=== PATIENT | male | born 1950 | race African-American/Black ===

== ENCOUNTER 2019-06-09 03:10 | Inpatient (IN) ==
[2019-06-09] MEDS ORDERED: NICOTINE 21 MG/24 HR PATCH TRANSDERM PRN (05:32)
[2019-06-09] MEDS ORDERED: hydrALAZINE 20 MG/1 ML VIAL IV PRN (05:32)
[2019-06-09] MEDS ORDERED: diphenhydrAMINE CAP 25 MG CAPSULE PO PRN (05:32)
[2019-06-09] MEDS ORDERED: guaiFENesin/DM ER 600-30 MG TABLET PO PRN (05:32)
[2019-06-09 06:02] LABS: Basophils % 0.3 % (0.0-0.8); Eosinophils # 0.2 10*3/uL (0.0-0.87); Eosinophils % 3.3 % (0.00-10.9); Immature Granulocytes % 0.5 %; Immature Granulocytes Absolute 0.03 #; Lymphocytes # 1.6 10*3/uL (1.4-4.0); Lymphocytes % 24.5 % (21.2-54.2); Mean Corpuscular HGB Conc 27.4 GM/DL (32-36); Monocytes % 10.1 % (1.7-12.7); Neutrophils % 61.3 % (38.7-73.9); Platelet Count 232 T/CUMM (130-400); Red Cell Distribution Width 16.7 % (9.3-17.3); White Blood Count 6.4 T/CUMM (4-12)
[2019-06-09 06:26] LABS: Hematocrit 24.7 VOL% (42.0-52.0); Hemoglobin 6.8 GM/DL (14.0-18.0)
[2019-06-09 06:33] LABS: Albumin 2.7 G/DL (3.4-5.0); Bilirubin,Total 0.4 MG/DL (0.2-1.0); Calcium 8.1 MG/DL (8.5-10.1); Risk Ratio 2.07; Thyroid Stimulating Hormone 2.17 uIU/ml (0.358-3.74); Total Protein 7.5 G/DL (6.4-8.3); VLDL CHOLESTEROL 8.8 MG/DL
[2019-06-09] MEDS ORDERED: MORPHINE 4 MG/1 ML VIAL IV ONE (06:33)
[2019-06-09 06:34] LABS: Folate 11.7 NG/ML (5.4-24.0); Vitamin B12 448 PG/ML (211-911)
[2019-06-09 06:43] LABS: Anisocytosis 1+; Hypochromasia 1+; Microcytosis 1+; Ovalocytes Few
[2019-06-09 06:44] LABS: Platelet Estimate Normal; Spherocytes Slight
[2019-06-09 07:07] LABS: Sedimentation Rate-Westergren 84 MM/HR (0-20)
[2019-06-09 08:46] LABS: Hemoglobin A1 (Alkaline) 97.2 % (96.5-98.5); Hemoglobin A2 (Alkaline) 2.8 % (1.5-3.5)
[2019-06-09] MEDS: PANTOPRAZOLE 40 MG VIAL IV SCH ×2 (11:22→20:59)
[2019-06-09] MEDS: DEXTROSE 5% LACTATED RINGERS 1,000 ML IV SCH (11:29)
[2019-06-09] MEDS ORDERED: ceFAZolin 1,000 MG in SYRINGE 1 EACH IV ONE (13:35)
[2019-06-09 14:18] LABS: Apearance,Urine CLEAR (Clear); Bilirubin,Urine Negative (Negative); Blood, Urine Negative (Negative); Glucose,Urine (UA) Negative (Negative); Ketones,Urine Negative (Negative); Mucus,Urine Occasional /LPF (Occasional); Nitrite,Urine Negative (Negative); Protein,Urine Negative; RBC,Urine 1 /HPF (0-4); Squamous Epithelial Cell,Urine Occasional /HPF (0-10); Urine Color Yellow (Yellow); Urine Specific Gravity 1.018 (1.001-1.035); Urine Urobilinogen < 2.0 EU/DL (0.2-1.0); WBC,Urine 1 /HPF (0-6)
[2019-06-09 14:39] LABS: % Iron Saturation 5.3 % (18-50)
[2019-06-09] MEDS ORDERED: SODIUM CHLORIDE 0.9% 1,000 ML IV PRN (15:39)
[2019-06-09] MEDS: MORPHINE 4 MG/1 ML VIAL IV PRN ×2 (16:53→21:02)
[2019-06-09] MEDS: NITROGLYCERIN 2% OINT 1 INCH/GM PACK TOP SCH (17:51)
[2019-06-09] MEDS ORDERED: FUROSEMIDE 40 MG/4 ML VIAL IV ONE (20:00)
[2019-06-10] MEDS: NITROGLYCERIN 2% OINT 1 INCH/GM PACK TOP SCH ×5 (00:24→18:05)
[2019-06-10 02:34] LABS: Basophils % 0.3 % (0.0-0.8); Eosinophils # 0.1 10*3/uL (0.0-0.87); Eosinophils % 1.4 % (0.00-10.9); Hematocrit 29.3 VOL% (42.0-52.0); Hemoglobin 8.7 GM/DL (14.0-18.0); Immature Granulocytes % 0.2 %; Immature Granulocytes Absolute 0.01 #; Lymphocytes # 1.2 10*3/uL (1.4-4.0); Mean Corpuscular HGB Conc 29.7 GM/DL (32-36); Mean Corpuscular Volume 77.7 FL (87-102); Monocytes % 10.5 % (1.7-12.7); Neutrophils % 69.6 % (38.7-73.9); Platelet Count 233 T/CUMM (130-400); Red Blood Count 3.77 MC/CUMM (3.8-5.5); Red Cell Distribution Width 16.7 % (9.3-17.3); White Blood Count 6.5 T/CUMM (4-12)
[2019-06-10 02:40] LABS: Calcium 8.2 MG/DL (8.5-10.1); Osmolality,Calculated 272.8 MOS/KG (273-304)
[2019-06-10 02:53] LABS: PT Patient Result 11.2 SECS (9.6-12.2)
[2019-06-10] MEDS: MORPHINE 4 MG/1 ML VIAL IV PRN ×3 (06:53→21:23)
[2019-06-10] MEDS ORDERED: SODIUM CHLORIDE 0.9% 1,000 ML IV PRN (08:39)
[2019-06-10] MEDS: POTASSIUM CHLORIDE RIDER 10 MEQ in PREMIX 1 EACH IV PRN (09:05)
[2019-06-10] MEDS ORDERED: PROMETHAZINE INJ 25 MG in SODIUM CHLORIDE 0.9% 50 ML IV PRN (09:30)
[2019-06-10] MEDS ORDERED: MEPERIDINE 25 MG/1 ML VIAL IV PRN (09:30)
[2019-06-10] MEDS ORDERED: ONDANSETRON 4 MG/2 ML VIAL IV PRN (09:30)
[2019-06-10] MEDS ORDERED: diphenhydrAMINE 50 MG/1 ML VIAL IV PRN (09:30)
[2019-06-10] MEDS ORDERED: DEXAMETHASONE 4 MG/1 ML VIAL ONE (10:08)
[2019-06-10] MEDS ORDERED: ROPIVACAINE 0.5% 30 ML VIAL ONE (10:08)
[2019-06-10] MEDS ORDERED: SUGAMMADEX 200 MG/2 ML VIAL IV ONE (10:42)
[2019-06-10 11:32] LABS: Apearance,Urine CLEAR (Clear); Bilirubin,Urine Negative (Negative); Blood, Urine Small mg/dL (Negative); Glucose,Urine (UA) Negative (Negative); Hyaline Casts,Urine 5 /LPF (0-3); Ketones,Urine Negative (Negative); Mucus,Urine Occasional /LPF (Occasional); Nitrite,Urine Negative (Negative); Protein,Urine 30 MG/DL; RBC,Urine 1 /HPF (0-4); Squamous Epithelial Cell,Urine Occasional /HPF (0-10); Urine Color Yellow (Yellow); Urine Specific Gravity 1.017 (1.001-1.035); Urine Urobilinogen < 2.0 EU/DL (0.2-1.0); WBC,Urine 1 /HPF (0-6)
[2019-06-10] MEDS: DEXTROSE 5% LACTATED RINGERS 1,000 ML IV SCH ×3 (11:50→23:08)
[2019-06-10] MEDS ORDERED: propofoL 200 MG/20 ML VIAL IV ONE (11:59)
[2019-06-10] MEDS ORDERED: LIDOCAINE 2% 5 ML VIAL ONE (11:59)
[2019-06-10] MEDS ORDERED: SEVOFLURANE 1 UNIT/15 MINUTE INH ONE (11:59)
[2019-06-10] MEDS ORDERED: FUROSEMIDE 20 MG/2 ML VIAL ONE (12:00)
[2019-06-10] MEDS ORDERED: fentaNYL 250 MCG/5 ML VIAL ONE (12:00)
[2019-06-10] MEDS ORDERED: ePHEDrine 50 MG/ML AMP ONE (12:00)
[2019-06-10] MEDS ORDERED: MIDAZOLAM 2 MG/2 ML VIAL ONE (12:00)
[2019-06-10] MEDS ORDERED: fentaNYL 100 MCG/2 ML VIAL ONE (12:00)
[2019-06-10] MEDS ORDERED: PHENYLEPHRINE 1 MG/10 ML SYRINGE IV ONE (12:01)
[2019-06-10] MEDS ORDERED: SUCCINYLCHOLINE 200 MG/10 ML VIAL ONE (12:01)
[2019-06-10] MEDS ORDERED: ONDANSETRON 4 MG/2 ML VIAL ONE (12:01)
[2019-06-10] MEDS ORDERED: ETOMIDATE 40 MG/20 ML VIAL IV ONE (12:01)
[2019-06-10] MEDS ORDERED: SODIUM CHLORIDE 0.9% 1,000 ML IV ONE (12:11)
[2019-06-10] MEDS ORDERED: ROCURONIUM 100 MG/10 ML VIAL IV ONE (12:11)
[2019-06-10] MEDS: ONDANSETRON 4 MG/2 ML VIAL IV PRN (13:46)
[2019-06-10] MEDS: PANTOPRAZOLE 40 MG VIAL IV SCH ×2 (14:58→21:18)
[2019-06-10] MEDS: cefOXitin 2,000 MG in SYRINGE 1 EACH IV SCH (18:05)
[2019-06-11] MEDS: NITROGLYCERIN 2% OINT 1 INCH/GM PACK TOP SCH ×4 (00:36→19:17)
[2019-06-11] MEDS: cefOXitin 2,000 MG in SYRINGE 1 EACH IV SCH ×2 (06:08→16:34)
[2019-06-11] MEDS: MORPHINE 4 MG/1 ML VIAL IV PRN ×3 (06:17→14:49)
[2019-06-11 07:31] LABS: Calcium 8.2 MG/DL (8.5-10.1)
[2019-06-11 07:40] LABS: Basophils % 0.1 % (0.0-0.8); Hemoglobin 10.1 GM/DL (14.0-18.0); Immature Granulocytes % 0.5 %; Immature Granulocytes Absolute 0.06 #; Lymphocytes # 0.8 10*3/uL (1.4-4.0); Lymphocytes % 6.5 % (21.2-54.2); Mean Corpuscular HGB Conc 30.6 GM/DL (32-36); Mean Corpuscular Volume 78.8 FL (87-102); Mean Platelet Volume 10.2 FL (9.6-12.0); Monocytes % 8.7 % (1.7-12.7); Neutrophils % 84.2 % (38.7-73.9); Platelet Count 212 T/CUMM (130-400); Red Blood Count 4.19 MC/CUMM (3.8-5.5); Red Cell Distribution Width 16.8 % (9.3-17.3); White Blood Count 12.7 T/CUMM (4-12)
[2019-06-11] MEDS: ONDANSETRON 4 MG/2 ML VIAL IV PRN ×2 (09:22→14:50)
[2019-06-11] MEDS: PANTOPRAZOLE 40 MG VIAL IV SCH ×2 (09:24→20:30)
[2019-06-11] MEDS: POTASSIUM CHLORIDE RIDER 10 MEQ in PREMIX 1 EACH IV PRN ×2 (13:32→14:50)
[2019-06-12] MEDS: NITROGLYCERIN 2% OINT 1 INCH/GM PACK TOP SCH ×4 (00:15→18:09)
[2019-06-12] MEDS: cefOXitin 2,000 MG in SYRINGE 1 EACH IV SCH (04:45)
[2019-06-12] MEDS: DEXTROSE 5% LACTATED RINGERS 1,000 ML IV SCH (04:45)
[2019-06-12 06:18] LABS: Basophils % 0.2 % (0.0-0.8); Eosinophils # 0.1 10*3/uL (0.0-0.87); Eosinophils % 1.3 % (0.00-10.9); Hematocrit 33.8 VOL% (42.0-52.0); Immature Granulocytes % 0.6 %; Immature Granulocytes Absolute 0.06 #; Lymphocytes # 1.4 10*3/uL (1.4-4.0); Lymphocytes % 13.6 % (21.2-54.2); Mean Corpuscular HGB Conc 29.6 GM/DL (32-36); Mean Corpuscular Volume 79.5 FL (87-102); Mean Platelet Volume 10.1 FL (9.6-12.0); Monocytes % 9.3 % (1.7-12.7); Platelet Count 216 T/CUMM (130-400); Red Blood Count 4.25 MC/CUMM (3.8-5.5); Red Cell Distribution Width 17.1 % (9.3-17.3); White Blood Count 10.3 T/CUMM (4-12)
[2019-06-12] MEDS ORDERED: ceFAZolin 1,000 MG in SYRINGE 1 EACH IV ONE (06:30)
[2019-06-12 06:31] LABS: Calcium 8.6 MG/DL (8.5-10.1); Osmolality,Calculated 272.8 MOS/KG (273-304)
[2019-06-12] MEDS: PANTOPRAZOLE 40 MG VIAL IV SCH ×2 (09:59→22:02)
[2019-06-12] MEDS: POTASSIUM CHLORIDE RIDER 10 MEQ in PREMIX 1 EACH IV PRN ×3 (10:09→14:09)
[2019-06-12] MEDS ORDERED: MORPHINE 4 MG/1 ML VIAL IV PRN ×2 (12:10)
[2019-06-13] MEDS: DEXTROSE 5% LACTATED RINGERS 1,000 ML IV SCH ×2 (00:45→05:42)
[2019-06-13] MEDS: NITROGLYCERIN 2% OINT 1 INCH/GM PACK TOP SCH ×3 (01:01→12:10)
[2019-06-13 06:46] LABS: Calcium 8.7 MG/DL (8.5-10.1); Osmolality,Calculated 265.2 MOS/KG (273-304)
[2019-06-13 07:00] LABS: Basophils % 0.2 % (0.0-0.8); Eosinophils # 0.3 10*3/uL (0.0-0.87); Eosinophils % 3.8 % (0.00-10.9); Hematocrit 31.7 VOL% (42.0-52.0); Immature Granulocytes % 0.5 %; Immature Granulocytes Absolute 0.04 #; Lymphocytes # 1.5 10*3/uL (1.4-4.0); Lymphocytes % 17.2 % (21.2-54.2); Mean Corpuscular HGB Conc 30.3 GM/DL (32-36); Mean Corpuscular Volume 78.9 FL (87-102); Mean Platelet Volume 10.5 FL (9.6-12.0); Monocytes % 12.1 % (1.7-12.7); Neutrophils % 66.2 % (38.7-73.9); Platelet Count 204 T/CUMM (130-400); Red Blood Count 4.02 MC/CUMM (3.8-5.5); Red Cell Distribution Width 17.2 % (9.3-17.3); White Blood Count 8.5 T/CUMM (4-12)
[2019-06-13 07:02] LABS: Hemoglobin 9.6 GM/DL (14.0-18.0)
[2019-06-13] MEDS: POTASSIUM CHLORIDE RIDER 10 MEQ in PREMIX 1 EACH IV PRN ×3 (10:04→12:18)
[2019-06-13] MEDS: PANTOPRAZOLE 40 MG VIAL IV SCH ×2 (12:10→22:16)
[2019-06-13] MEDS: LOSARTAN 25 MG TABLET PO SCH (16:57)
[2019-06-13] MEDS: AMIODARONE 200 MG TABLET PO SCH (22:16)
[2019-06-13] MEDS: POTASSIUM CHLORIDE 20 MEQ TABLET PO SCH (22:17)
[2019-06-13] MEDS: ENOXAPARIN 40 MG/0.4 ML SYRINGE SUBCUT SCH (22:17)
[2019-06-14 06:09] LABS: Basophils % 0.5 % (0.0-0.8); Eosinophils # 0.4 10*3/uL (0.0-0.87); Eosinophils % 5.1 % (0.00-10.9); Hematocrit 34.7 VOL% (42.0-52.0); Immature Granulocytes % 0.4 %; Immature Granulocytes Absolute 0.03 #; Lymphocytes # 1.3 10*3/uL (1.4-4.0); Lymphocytes % 18.1 % (21.2-54.2); Mean Corpuscular HGB Conc 29.1 GM/DL (32-36); Mean Corpuscular Volume 82.6 FL (87-102); Mean Platelet Volume 10.3 FL (9.6-12.0); Neutrophils % 63.9 % (38.7-73.9); Platelet Count 223 T/CUMM (130-400); Red Cell Distribution Width 17.2 % (9.3-17.3); White Blood Count 7.3 T/CUMM (4-12)
[2019-06-14 06:24] LABS: Calcium 8.7 MG/DL (8.5-10.1); Osmolality,Calculated 273.7 MOS/KG (273-304)
[2019-06-14 06:32] LABS: Hemoglobin 10.1 GM/DL (14.0-18.0)
[2019-06-14 06:54] LABS: Hypochromasia 1+; Ovalocytes Slight; Platelet Estimate Adequate
[2019-06-14] MEDS: LOSARTAN 25 MG TABLET PO SCH (10:13)
[2019-06-14] MEDS: AMIODARONE 200 MG TABLET PO SCH ×2 (10:13→22:05)
[2019-06-14] MEDS: POTASSIUM CHLORIDE 20 MEQ TABLET PO SCH ×2 (10:13→22:04)
[2019-06-14] MEDS: PANTOPRAZOLE 40 MG VIAL IV SCH ×2 (10:14→22:04)
[2019-06-14] MEDS: DEXTROSE 5% LACTATED RINGERS 1,000 ML IV SCH (12:18)
[2019-06-14] MEDS: ENOXAPARIN 40 MG/0.4 ML SYRINGE SUBCUT SCH (22:04)
[2019-06-14] MEDS: carvediloL 12.5 MG TABLET PO SCH (22:05)
[2019-06-15] MEDS ORDERED: FUROSEMIDE 40 MG TABLET PO SCH (09:00)
[2019-06-15] MEDS: LOSARTAN 25 MG TABLET PO SCH (10:47)
[2019-06-15] MEDS: carvediloL 12.5 MG TABLET PO SCH (10:47)
[2019-06-15] MEDS: POTASSIUM CHLORIDE 20 MEQ TABLET PO SCH (10:47)
[2019-06-15] MEDS: PANTOPRAZOLE 40 MG VIAL IV SCH (10:48)
[2019-06-15] MEDS: AMIODARONE 200 MG TABLET PO SCH (10:48)
[2019-06-15 11:17] VITALS: BP 139/57
== END 2019-06-15 16:05 | disposition home or self-care (01) | DRG 330 ==
LOC: N.TELEN 04:47 → SUATTDRO 04:47 → N.3E 06-10 13:47
PROVIDERS: ADMIT Internal Medicine; ATTEND Internal Medicine

== ENCOUNTER 2020-08-01 05:46 | Inpatient (IN) ==
[2020-07-26 12:04] LABS: Basophils % 0.2 % (0.0-0.8); Eosinophils # 0.1 10*3/uL (0.0-0.87); Eosinophils % 1.4 % (0.00-10.9); Hemoglobin 11.7 GM/DL (14.0-18.0); Immature Granulocytes % 0.3 %; Immature Granulocytes Absolute 0.02 #; Lymphocytes # 1.8 10*3/uL (1.4-4.0); Lymphocytes % 28.6 % (21.2-54.2); Mean Corpuscular HGB Conc 31.6 GM/DL (32-36); Mean Corpuscular Volume 90.9 FL (87-102); Mean Platelet Volume 11.3 FL (9.6-12.0); Monocytes % 14.7 % (1.7-12.7); Neutrophils % 54.8 % (38.7-73.9); Platelet Count 159 T/CUMM (130-400); Red Blood Count 4.07 MC/CUMM (3.8-5.5); Red Cell Distribution Width 16.8 % (9.3-17.3); White Blood Count 6.4 T/CUMM (4-12)
[2020-07-26 12:21] LABS: Calcium 8.7 MG/DL (8.5-10.1); Osmolality,Calculated 275.8 MOS/KG (273-304); Potassium 3.8 MMOL/L (3.5-5.1)
[~2020-08-01 05:46] MED LIST: ACETAMINOPHEN 500 MG TABLET PO ONE; FAMOTIDINE 20 MG TABLET PO ONE
[2020-08-01] MEDS ORDERED: LACTATED RINGERS 1,000 ML IV SCH (06:30)
[2020-08-01] MEDS ORDERED: cefOXitin 1,000 MG in SODIUM CHLORIDE 0.9% 100 ML IV ONE (06:30)
[2020-08-01] MEDS ORDERED: FAMOTIDINE 20 MG TABLET ONE (06:42)
[2020-08-01] MEDS ORDERED: ACETAMINOPHEN 500 MG TABLET ONE (06:42)
[2020-08-01] MEDS ORDERED: MIDAZOLAM 2 MG/2 ML VIAL ONE (11:18)
[2020-08-01] MEDS ORDERED: fentaNYL 100 MCG/2 ML VIAL ONE ×2 (11:18→13:47)
[2020-08-01] MEDS ORDERED: ROPIVACAINE 0.5% 30 ML VIAL ONE (11:21)
[2020-08-01] MEDS ORDERED: ROCURONIUM 50 MG/5 ML VIAL IV ONE (12:30)
[2020-08-01] MEDS ORDERED: propofoL 200 MG/20 ML VIAL IV ONE ×2 (12:30→13:46)
[2020-08-01] MEDS ORDERED: LIDOCAINE 2% 5 ML VIAL ONE (12:30)
[2020-08-01] MEDS ORDERED: DEXAMETHASONE 4 MG/1 ML VIAL ONE (12:33)
[2020-08-01] MEDS ORDERED: ONDANSETRON 4 MG/2 ML VIAL ONE ×2 (12:33→14:36)
[2020-08-01] MEDS ORDERED: LACTATED RINGERS 1,000 ML IV ONE (13:50)
[2020-08-01 13:52] LABS: Bacteria,Urine Occasional /HPF (Few); Bilirubin,Urine Negative (Negative); Blood, Urine Moderate mg/dL (Negative); Glucose,Urine (UA) Negative (Negative); Ketones,Urine Negative (Negative); Nitrite,Urine Negative (Negative); Protein,Urine Negative; RBC,Urine <1 /HPF (0-4); Squamous Epithelial Cell,Urine Occasional /HPF (0-10); Urine Appearance CLEAR (Clear); Urine Color Straw (Yellow); Urine Specific Gravity 1.006 (1.001-1.035); Urine Urobilinogen < 2.0 EU/DL (0.2-1.0)
[2020-08-01] MEDS ORDERED: GLYCOPYRROLATE 0.4 MG/2 ML VIAL ONE (13:54)
[2020-08-01] MEDS ORDERED: NEOSTIGMINE 10 MG/10 ML VIAL ONE (13:54)
[2020-08-01] MEDS ORDERED: SEVOFLURANE 1 UNIT/15 MINUTE INH ONE (14:04)
[2020-08-01] MEDS: HYDROmorphone 2 MG/1 ML VIAL IV PRN ×4 (14:34→17:44)
[2020-08-01] MEDS ORDERED: HYDROmorphone 2 MG/1 ML VIAL ONE (14:36)
[2020-08-01] MEDS ORDERED: ONDANSETRON 4 MG/2 ML VIAL IV PRN (14:36)
[2020-08-01] MEDS ORDERED: ACETAMINOPHEN 325 MG TABLET PO PRN (14:54)
[2020-08-01] MEDS ORDERED: ALBUTEROL/IPRATROPIUM 3 ML NEB RESP TX PRN (14:54)
[2020-08-01] MEDS ORDERED: KETOROLAC 15 MG/1 ML VIAL IV PRN (14:54)
[2020-08-01] MEDS ORDERED: MEPERIDINE 25 MG/1 ML VIAL ONE (14:58)
[2020-08-01] MEDS ORDERED: MEPERIDINE 25 MG/1 ML VIAL IV PRN (15:01)
[2020-08-01] MEDS: LACTATED RINGERS 1,000 ML IV SCH ×2 (17:00→21:37)
[2020-08-02] MEDS: HYDROmorphone 2 MG/1 ML VIAL IV PRN (03:49)
[2020-08-02 05:22] LABS: Basophils % 0.1 % (0.0-0.8); Hematocrit 32.5 VOL% (42.0-52.0); Immature Granulocytes % 0.6 %; Immature Granulocytes Absolute 0.07 #; Lymphocytes # 1.1 10*3/uL (1.4-4.0); Lymphocytes % 8.6 % (21.2-54.2); Mean Corpuscular HGB Conc 30.8 GM/DL (32-36); Mean Corpuscular Volume 93.4 FL (87-102); Mean Platelet Volume 10.5 FL (9.6-12.0); Monocytes % 8.7 % (1.7-12.7); Platelet Count 145 T/CUMM (130-400); Red Blood Count 3.48 MC/CUMM (3.8-5.5); Red Cell Distribution Width 16.7 % (9.3-17.3); White Blood Count 12.4 T/CUMM (4-12)
[2020-08-02 05:59] LABS: Calcium 8.3 MG/DL (8.5-10.1); Osmolality,Calculated 276.7 MOS/KG (273-304); Potassium 4.1 MMOL/L (3.5-5.1)
[2020-08-02] MEDS: LACTATED RINGERS 1,000 ML IV SCH ×2 (06:08→10:31)
[2020-08-02] MEDS: ENOXAPARIN 40 MG/0.4 ML SYRINGE SUBCUT SCH (09:10)
[2020-08-02] MEDS: PANTOPRAZOLE 40 MG VIAL IV SCH (09:34)
[2020-08-02] MEDS: KETOROLAC 15 MG/1 ML VIAL IV SCH ×3 (10:38→22:04)
[2020-08-02] MEDS: LOSARTAN 25 MG TABLET PO SCH (20:20)
[2020-08-02] MEDS: POTASSIUM CHLORIDE 20 MEQ TABLET PO SCH (20:20)
[2020-08-02] MEDS: carvediloL 12.5 MG TABLET PO SCH (20:22)
[2020-08-03] MEDS: KETOROLAC 15 MG/1 ML VIAL IV SCH ×4 (04:05→21:02)
[2020-08-03 05:29] LABS: Basophils % 0.3 % (0.0-0.8); Eosinophils # 0.1 10*3/uL (0.0-0.87); Eosinophils % 1.1 % (0.00-10.9); Hematocrit 27.2 VOL% (42.0-52.0); Immature Granulocytes % 0.6 %; Immature Granulocytes Absolute 0.04 #; Lymphocytes # 1.7 10*3/uL (1.4-4.0); Lymphocytes % 24.4 % (21.2-54.2); Mean Corpuscular HGB Conc 31.6 GM/DL (32-36); Mean Corpuscular Volume 91.3 FL (87-102); Mean Platelet Volume 10.2 FL (9.6-12.0); Monocytes % 11.5 % (1.7-12.7); Neutrophils % 62.1 % (38.7-73.9); Red Blood Count 2.98 MC/CUMM (3.8-5.5); Red Cell Distribution Width 16.7 % (9.3-17.3); White Blood Count 7.1 T/CUMM (4-12)
[2020-08-03 05:30] LABS: Platelet Count 115 T/CUMM (130-400)
[2020-08-03 05:31] LABS: Hemoglobin 8.6 GM/DL (14.0-18.0)
[2020-08-03 05:36] LABS: Calcium 8.3 MG/DL (8.5-10.1); Osmolality,Calculated 275.7 MOS/KG (273-304); Potassium 3.9 MMOL/L (3.5-5.1)
[2020-08-03 05:41] LABS: Hypochromasia 1+; Lymphocytes 25 % (20-55); Microcytosis 1+; Platelet Estimate Decreased; Segmented Neutrophils 68 % (50-85); Total Cells Counted 100
[2020-08-03] MEDS: ENOXAPARIN 40 MG/0.4 ML SYRINGE SUBCUT SCH (08:29)
[2020-08-03] MEDS: TAMSULOSIN 0.4 MG CAPSULE PO SCH (08:53)
[2020-08-03] MEDS: FUROSEMIDE 40 MG TABLET PO SCH (08:53)
[2020-08-03] MEDS: PANTOPRAZOLE 40 MG VIAL IV SCH (08:53)
[2020-08-03] MEDS: POTASSIUM CHLORIDE 20 MEQ TABLET PO SCH ×2 (08:53→20:58)
[2020-08-03] MEDS: carvediloL 12.5 MG TABLET PO SCH ×2 (08:53→20:58)
[2020-08-03] MEDS ORDERED: ASPIRIN 325 MG TABLET PO SCH (09:00)
[2020-08-03] MEDS: LOSARTAN 25 MG TABLET PO SCH (20:59)
[2020-08-04] MEDS: KETOROLAC 15 MG/1 ML VIAL IV SCH ×4 (04:12→21:01)
[2020-08-04 05:13] LABS: Basophils % 0.1 % (0.0-0.8); Eosinophils # 0.3 10*3/uL (0.0-0.87); Eosinophils % 3.3 % (0.00-10.9); Hematocrit 29.7 VOL% (42.0-52.0); Immature Granulocytes % 0.3 %; Immature Granulocytes Absolute 0.02 #; Lymphocytes # 1.5 10*3/uL (1.4-4.0); Lymphocytes % 19.7 % (21.2-54.2); Mean Corpuscular HGB Conc 30.3 GM/DL (32-36); Mean Corpuscular Volume 93.4 FL (87-102); Mean Platelet Volume 10.7 FL (9.6-12.0); Monocytes % 10.2 % (1.7-12.7); Neutrophils % 66.4 % (38.7-73.9); Platelet Count 135 T/CUMM (130-400); Red Blood Count 3.18 MC/CUMM (3.8-5.5); Red Cell Distribution Width 16.4 % (9.3-17.3); White Blood Count 7.6 T/CUMM (4-12)
[2020-08-04] MEDS: carvediloL 12.5 MG TABLET PO SCH ×2 (08:46→20:56)
[2020-08-04] MEDS: ENOXAPARIN 40 MG/0.4 ML SYRINGE SUBCUT SCH (08:46)
[2020-08-04] MEDS: POTASSIUM CHLORIDE 20 MEQ TABLET PO SCH ×2 (08:46→20:56)
[2020-08-04] MEDS: TAMSULOSIN 0.4 MG CAPSULE PO SCH (08:46)
[2020-08-04] MEDS: PANTOPRAZOLE 40 MG VIAL IV SCH (08:48)
[2020-08-04] MEDS: GABAPENTIN 300 MG CAPSULE PO SCH ×3 (10:29→20:56)
[2020-08-04] MEDS: FUROSEMIDE 40 MG TABLET PO SCH (10:29)
[2020-08-04] MEDS: HYDROmorphone 2 MG/1 ML VIAL IV PRN (12:51)
[2020-08-04] MEDS: ONDANSETRON 4 MG/2 ML VIAL IV PRN (19:16)
[2020-08-04] MEDS: LOSARTAN 25 MG TABLET PO SCH (20:56)
[2020-08-04 22:10] LABS: Basophils % 0.1 % (0.0-0.8); Eosinophils # 0.1 10*3/uL (0.0-0.87); Eosinophils % 1.5 % (0.00-10.9); Hematocrit 32.4 VOL% (42.0-52.0); Hemoglobin 9.9 GM/DL (14.0-18.0); Immature Granulocytes % 0.4 %; Immature Granulocytes Absolute 0.03 #; Lymphocytes # 0.7 10*3/uL (1.4-4.0); Lymphocytes % 9.4 % (21.2-54.2); Mean Corpuscular HGB Conc 30.6 GM/DL (32-36); Mean Corpuscular Volume 91.8 FL (87-102); Mean Platelet Volume 9.8 FL (9.6-12.0); Monocytes % 8.9 % (1.7-12.7); Neutrophils % 79.7 % (38.7-73.9); Platelet Count 144 T/CUMM (130-400); Red Blood Count 3.53 MC/CUMM (3.8-5.5); Red Cell Distribution Width 16.5 % (9.3-17.3); White Blood Count 7.2 T/CUMM (4-12)
[2020-08-04 22:33] LABS: Anisocytosis 1+; Band Neutrophils 5 % (0-10); Eosinophils 1 % (0-10); Lymphocytes 13 % (20-55); Segmented Neutrophils 76 % (50-85); Total Cells Counted 100
[2020-08-04 22:34] LABS: Elliptocytes Few; Hypochromasia Slight; Platelet Estimate Adequate; Polychromasia Slight
[2020-08-04 22:38] LABS: Bilirubin,Total 0.8 MG/DL (0.2-1.0); Calcium 8.8 MG/DL (8.5-10.1); Osmolality,Calculated 276.8 MOS/KG (273-304); Potassium 3.7 MMOL/L (3.5-5.1); Total Protein 7.8 G/DL (6.4-8.2)
[2020-08-04] MEDS: DEXTROSE 5% LACTATED RINGERS 1,000 ML IV SCH (23:00)
[2020-08-05] MEDS: KETOROLAC 15 MG/1 ML VIAL IV SCH ×4 (03:38→22:48)
[2020-08-05] MEDS: DEXTROSE 5% LACTATED RINGERS 1,000 ML IV SCH ×3 (05:44→22:47)
[2020-08-05] MEDS: HYDROmorphone 2 MG/1 ML VIAL IV PRN ×3 (06:46→20:24)
[2020-08-05] MEDS: carvediloL 12.5 MG TABLET PO SCH ×2 (08:58→21:38)
[2020-08-05] MEDS: GABAPENTIN 300 MG CAPSULE PO SCH ×3 (08:58→21:38)
[2020-08-05] MEDS: POTASSIUM CHLORIDE 20 MEQ TABLET PO SCH ×2 (08:58→21:38)
[2020-08-05] MEDS: TAMSULOSIN 0.4 MG CAPSULE PO SCH (08:58)
[2020-08-05] MEDS: ENOXAPARIN 40 MG/0.4 ML SYRINGE SUBCUT SCH (08:59)
[2020-08-05] MEDS: FUROSEMIDE 40 MG TABLET PO SCH (08:59)
[2020-08-05] MEDS: PANTOPRAZOLE 40 MG VIAL IV SCH (09:02)
[2020-08-05] MEDS: ONDANSETRON 4 MG/2 ML VIAL IV PRN (20:22)
[2020-08-05] MEDS: LOSARTAN 25 MG TABLET PO SCH (21:38)
[2020-08-06] MEDS: KETOROLAC 15 MG/1 ML VIAL IV SCH ×4 (03:05→21:00)
[2020-08-06] MEDS: DEXTROSE 5% LACTATED RINGERS 1,000 ML IV SCH ×3 (04:48→16:00)
[2020-08-06 05:30] LABS: Eosinophils # 0.2 10*3/uL (0.0-0.87); Eosinophils % 4.1 % (0.00-10.9); Hematocrit 29.5 VOL% (42.0-52.0); Hemoglobin 9.2 GM/DL (14.0-18.0); Immature Granulocytes % 0.2 %; Immature Granulocytes Absolute 0.01 #; Lymphocytes # 1.3 10*3/uL (1.4-4.0); Mean Corpuscular HGB Conc 31.2 GM/DL (32-36); Mean Platelet Volume 10.1 FL (9.6-12.0); Monocytes % 18.9 % (1.7-12.7); Neutrophils % 50.8 % (38.7-73.9); Platelet Count 141 T/CUMM (130-400); Red Blood Count 3.24 MC/CUMM (3.8-5.5); Red Cell Distribution Width 16.7 % (9.3-17.3); White Blood Count 4.9 T/CUMM (4-12)
[2020-08-06 05:53] LABS: Osmolality,Calculated 282.3 MOS/KG (273-304); Potassium 3.8 MMOL/L (3.5-5.1)
[2020-08-06 05:54] LABS: Band Neutrophils 2 % (0-10); Eosinophils 3 % (0-10); Hypochromasia 1+; Lymphocytes 32 % (20-55); Microcytosis 1+; Ovalocytes Slight; Platelet Estimate Adequate; Segmented Neutrophils 51 % (50-85); Total Cells Counted 100
[2020-08-06] MEDS: HYDROmorphone 2 MG/1 ML VIAL IV PRN (06:18)
[2020-08-06] MEDS: FUROSEMIDE 40 MG TABLET PO SCH (09:48)
[2020-08-06] MEDS: carvediloL 12.5 MG TABLET PO SCH ×2 (09:49→20:53)
[2020-08-06] MEDS: POTASSIUM CHLORIDE 20 MEQ TABLET PO SCH ×2 (09:49→20:53)
[2020-08-06] MEDS: TAMSULOSIN 0.4 MG CAPSULE PO SCH (09:49)
[2020-08-06] MEDS: GABAPENTIN 300 MG CAPSULE PO SCH ×3 (09:49→20:53)
[2020-08-06] MEDS: PANTOPRAZOLE 40 MG VIAL IV SCH (09:52)
[2020-08-06] MEDS: ENOXAPARIN 40 MG/0.4 ML SYRINGE SUBCUT SCH (09:55)
[2020-08-06] MEDS: LOSARTAN 25 MG TABLET PO SCH (20:53)
[2020-08-07] MEDS: DEXTROSE 5% LACTATED RINGERS 1,000 ML IV SCH ×4 (01:06→22:20)
[2020-08-07] MEDS: KETOROLAC 15 MG/1 ML VIAL IV SCH (04:27)
[2020-08-07] MEDS: FUROSEMIDE 40 MG TABLET PO SCH (09:42)
[2020-08-07] MEDS: carvediloL 12.5 MG TABLET PO SCH ×2 (09:42→21:04)
[2020-08-07] MEDS: TAMSULOSIN 0.4 MG CAPSULE PO SCH (09:42)
[2020-08-07] MEDS: GABAPENTIN 300 MG CAPSULE PO SCH ×3 (09:42→21:04)
[2020-08-07] MEDS: POTASSIUM CHLORIDE 20 MEQ TABLET PO SCH ×2 (09:42→21:04)
[2020-08-07] MEDS: ENOXAPARIN 40 MG/0.4 ML SYRINGE SUBCUT SCH (09:43)
[2020-08-07] MEDS: PANTOPRAZOLE 40 MG VIAL IV SCH (09:43)
[2020-08-07] MEDS: HYDROmorphone 2 MG/1 ML VIAL IV PRN ×2 (13:45→21:05)
[2020-08-07] MEDS ORDERED: PHENOL 1.4% THROAT SPRAY 177 ML BOTTLE PO PRN (15:35)
[2020-08-07] MEDS: LOSARTAN 25 MG TABLET PO SCH (21:04)
[2020-08-08] MEDS: DEXTROSE 5% LACTATED RINGERS 1,000 ML IV SCH ×3 (03:44→14:17)
[2020-08-08] MEDS: HYDROmorphone 2 MG/1 ML VIAL IV PRN ×2 (05:15→13:34)
[2020-08-08 05:22] LABS: Basophils % 0.3 % (0.0-0.8); Eosinophils # 0.3 10*3/uL (0.0-0.87); Eosinophils % 3.8 % (0.00-10.9); Hematocrit 27.3 VOL% (42.0-52.0); Hemoglobin 8.6 GM/DL (14.0-18.0); Immature Granulocytes % 0.3 %; Immature Granulocytes Absolute 0.02 #; Lymphocytes # 1.6 10*3/uL (1.4-4.0); Lymphocytes % 23.8 % (21.2-54.2); Mean Corpuscular HGB Conc 31.5 GM/DL (32-36); Mean Platelet Volume 10.3 FL (9.6-12.0); Monocytes % 15.2 % (1.7-12.7); Neutrophils % 56.6 % (38.7-73.9); Platelet Count 153 T/CUMM (130-400); Red Cell Distribution Width 16.1 % (9.3-17.3); White Blood Count 6.9 T/CUMM (4-12)
[2020-08-08 05:38] LABS: Calcium 8.5 MG/DL (8.5-10.1); Osmolality,Calculated 277.4 MOS/KG (273-304); Potassium 3.8 MMOL/L (3.5-5.1)
[2020-08-08] MEDS: carvediloL 12.5 MG TABLET PO SCH ×2 (09:20→20:52)
[2020-08-08] MEDS: POTASSIUM CHLORIDE 20 MEQ TABLET PO SCH ×2 (09:20→20:50)
[2020-08-08] MEDS: TAMSULOSIN 0.4 MG CAPSULE PO SCH (09:20)
[2020-08-08] MEDS: FUROSEMIDE 40 MG TABLET PO SCH (09:21)
[2020-08-08] MEDS: ENOXAPARIN 40 MG/0.4 ML SYRINGE SUBCUT SCH (09:21)
[2020-08-08] MEDS: GABAPENTIN 300 MG CAPSULE PO SCH ×3 (09:21→20:52)
[2020-08-08] MEDS: PANTOPRAZOLE 40 MG VIAL IV SCH (09:22)
[2020-08-08] MEDS: LOSARTAN 25 MG TABLET PO SCH (20:52)
[2020-08-09] MEDS: DEXTROSE 5% LACTATED RINGERS 1,000 ML IV SCH ×4 (05:24→22:20)
[2020-08-09 06:23] LABS: Basophils % 0.1 % (0.0-0.8); Eosinophils # 0.2 10*3/uL (0.0-0.87); Eosinophils % 1.9 % (0.00-10.9); Hemoglobin 8.9 GM/DL (14.0-18.0); Immature Granulocytes % 0.4 %; Immature Granulocytes Absolute 0.04 #; Lymphocytes # 1.8 10*3/uL (1.4-4.0); Lymphocytes % 18.9 % (21.2-54.2); Mean Corpuscular HGB Conc 30.7 GM/DL (32-36); Mean Corpuscular Volume 92.1 FL (87-102); Mean Platelet Volume 10.3 FL (9.6-12.0); Monocytes % 11.6 % (1.7-12.7); Neutrophils % 67.1 % (38.7-73.9); Platelet Count 183 T/CUMM (130-400); Red Blood Count 3.15 MC/CUMM (3.8-5.5); Red Cell Distribution Width 15.4 % (9.3-17.3); White Blood Count 9.3 T/CUMM (4-12)
[2020-08-09 06:40] LABS: Calcium 8.6 MG/DL (8.5-10.1); Osmolality,Calculated 272.7 MOS/KG (273-304); Potassium 3.7 MMOL/L (3.5-5.1)
[2020-08-09] MEDS: TAMSULOSIN 0.4 MG CAPSULE PO SCH (10:24)
[2020-08-09] MEDS: carvediloL 12.5 MG TABLET PO SCH ×2 (10:24→21:19)
[2020-08-09] MEDS: POTASSIUM CHLORIDE 20 MEQ TABLET PO SCH ×2 (10:24→21:19)
[2020-08-09] MEDS: GABAPENTIN 300 MG CAPSULE PO SCH ×3 (10:25→21:19)
[2020-08-09] MEDS: FUROSEMIDE 40 MG TABLET PO SCH (10:25)
[2020-08-09] MEDS: ENOXAPARIN 40 MG/0.4 ML SYRINGE SUBCUT SCH (10:25)
[2020-08-09] MEDS: PANTOPRAZOLE 40 MG VIAL IV SCH (10:26)
[2020-08-09] MEDS: LOSARTAN 25 MG TABLET PO SCH (21:19)
[2020-08-10] MEDS: DEXTROSE 5% LACTATED RINGERS 1,000 ML IV SCH ×2 (06:48→14:34)
[2020-08-10] MEDS: carvediloL 12.5 MG TABLET PO SCH ×2 (09:15→21:00)
[2020-08-10] MEDS: TAMSULOSIN 0.4 MG CAPSULE PO SCH (09:15)
[2020-08-10] MEDS: GABAPENTIN 300 MG CAPSULE PO SCH ×3 (09:15→21:00)
[2020-08-10] MEDS: POTASSIUM CHLORIDE 20 MEQ TABLET PO SCH ×2 (09:16→21:00)
[2020-08-10] MEDS: FUROSEMIDE 40 MG TABLET PO SCH (09:16)
[2020-08-10] MEDS: ENOXAPARIN 40 MG/0.4 ML SYRINGE SUBCUT SCH (09:16)
[2020-08-10] MEDS: PANTOPRAZOLE 40 MG VIAL IV SCH (09:17)
[2020-08-10] MEDS: ONDANSETRON 4 MG/2 ML VIAL IV PRN (11:21)
[2020-08-10] MEDS: LOSARTAN 25 MG TABLET PO SCH (21:00)
[2020-08-11] MEDS: DEXTROSE 5% LACTATED RINGERS 1,000 ML IV SCH ×2 (02:49→14:00)
[2020-08-11] MEDS: FUROSEMIDE 40 MG TABLET PO SCH (09:33)
[2020-08-11] MEDS: carvediloL 12.5 MG TABLET PO SCH ×2 (09:33→22:09)
[2020-08-11] MEDS: POTASSIUM CHLORIDE 20 MEQ TABLET PO SCH ×2 (09:33→22:09)
[2020-08-11] MEDS: TAMSULOSIN 0.4 MG CAPSULE PO SCH (09:33)
[2020-08-11] MEDS: GABAPENTIN 300 MG CAPSULE PO SCH ×3 (09:33→22:09)
[2020-08-11] MEDS: PANTOPRAZOLE 40 MG VIAL IV SCH (09:34)
[2020-08-11] MEDS: ENOXAPARIN 40 MG/0.4 ML SYRINGE SUBCUT SCH (09:34)
[2020-08-11] MEDS: LOSARTAN 25 MG TABLET PO SCH (22:09)
[2020-08-12] MEDS: ENOXAPARIN 40 MG/0.4 ML SYRINGE SUBCUT SCH (10:01)
[2020-08-12] MEDS: GABAPENTIN 300 MG CAPSULE PO SCH ×2 (10:01→15:54)
[2020-08-12] MEDS: TAMSULOSIN 0.4 MG CAPSULE PO SCH (10:01)
[2020-08-12] MEDS: carvediloL 12.5 MG TABLET PO SCH (10:01)
[2020-08-12] MEDS: POTASSIUM CHLORIDE 20 MEQ TABLET PO SCH (10:01)
[2020-08-12] MEDS: FUROSEMIDE 40 MG TABLET PO SCH (10:02)
[2020-08-12] MEDS: PANTOPRAZOLE 40 MG VIAL IV SCH (10:02)
[2020-08-12 11:03] VITALS: BP 127/77
== END 2020-08-12 17:40 | disposition home health service (06) | DRG 330 ==
LOC: N.OR 05:46 → N.SDSINP 08:49 → N.3E 14:54
PROVIDERS: ADMIT Surgery; ATTEND Surgery

== ENCOUNTER 2021-05-26 00:15 | Observation (INO) ==
[2021-05-26] MEDS ORDERED: POTASSIUM CHLORIDE 20 MEQ TABLET PO PRN (07:02)
[2021-05-26] MEDS ORDERED: MAGNESIUM SULF RIDER 4 GM/100 ML PREMIX IV PRN (07:02)
[2021-05-26] MEDS ORDERED: hydrALAZINE 20 MG/1 ML VIAL IV PRN (07:02)
[2021-05-26] MEDS ORDERED: MORPHINE 4 MG/1 ML VIAL IV PRN (07:02)
[2021-05-26] MEDS ORDERED: PROMETHAZINE 25 MG TABLET PO PRN (07:02)
[2021-05-26] MEDS ORDERED: guaiFENesin/DM ER 600-30 MG TABLET PO PRN (07:02)
[2021-05-26] MEDS ORDERED: DOCUSATE SODIUM 100 MG CAPSULE PO PRN (07:02)
[2021-05-26] MEDS ORDERED: ACETAMINOPHEN 325 MG TABLET PO PRN (07:02)
[2021-05-26] MEDS ORDERED: diphenhydrAMINE CAP 25 MG CAPSULE PO PRN (07:02)
[2021-05-26] MEDS ORDERED: ZALEPLON 5 MG CAPSULE PO PRN (07:02)
[2021-05-26] MEDS ORDERED: MAGNESIUM SULF RIDER 2 GM/50 ML PREMIX IV PRN (07:02)
[2021-05-26] MEDS ORDERED: ALUMINUM/MAGNES/SIMETH MAX STR 30 ML UDCUP PO PRN (07:02)
[2021-05-26] MEDS ORDERED: ONDANSETRON 4 MG/2 ML VIAL IV PRN (07:02)
[2021-05-26] MEDS: PANTOPRAZOLE 40 MG TABLET PO SCH (16:44)
[2021-05-26] MEDS: SOTALOL 80 MG TABLET PO SCH ×2 (16:45→20:32)
[2021-05-26 17:45] LABS: Basophils % 0.4 % (0.0-0.8); Eosinophils # 0.1 10*3/uL (0.0-0.87); Eosinophils % 0.9 % (0.00-10.9); Hematocrit 35.6 VOL% (42.0-52.0); Hemoglobin 11.1 GM/DL (14.0-18.0); Immature Granulocytes % 0.2 %; Immature Granulocytes Absolute 0.01 #; Lymphocytes # 2.4 10*3/uL (1.4-4.0); Lymphocytes % 45.4 % (21.2-54.2); Mean Corpuscular HGB Conc 31.2 GM/DL (32-36); Mean Corpuscular Volume 95.2 FL (87-102); Mean Platelet Volume 10.2 FL (9.6-12.0); Monocytes % 9.3 % (1.7-12.7); Neutrophils % 43.8 % (38.7-73.9); Platelet Count 148 T/CUMM (130-400); Red Blood Count 3.74 MC/CUMM (3.8-5.5); Red Cell Distribution Width 13.6 % (9.3-17.3); White Blood Count 5.3 T/CUMM (4-12)
[2021-05-26 18:13] LABS: Alanine Aminotransferase 15 U/L (16-61); Albumin 3.2 G/DL (3.4-5.0); Alkaline Phosphatase 69 U/L (45-117); Aspartate Amino Transferase 16 U/L (0-37); Bilirubin,Total < 0.39 MG/DL (0.20-1.00); Blood Urea Nitrogen 24 MG/DL (7-18); Carbon Dioxide 25 MMOL/L (21-32); Estimated Glom Filtration Rate 83 ML/MIN; Glucose 141 MG/DL (74-106); Osmolality,Calculated 282.5 MOS/KG (273-304); Potassium 3.8 MMOL/L (3.5-5.1); Sodium 139 MMOL/L (136-145); Total Protein 7.6 G/DL (6.4-8.2)
[2021-05-26] MEDS: LOSARTAN 25 MG TABLET PO SCH (20:32)
[2021-05-27 05:45] LABS: Basophils % 0.6 % (0.0-0.8); Eosinophils # 0.1 10*3/uL (0.0-0.87); Eosinophils % 1.2 % (0.00-10.9); Hematocrit 35.3 VOL% (42.0-52.0); Hemoglobin 11.1 GM/DL (14.0-18.0); Immature Granulocytes % 0.2 %; Immature Granulocytes Absolute 0.01 #; Lymphocytes # 2.4 10*3/uL (1.4-4.0); Lymphocytes % 46.7 % (21.2-54.2); Mean Corpuscular HGB Conc 31.4 GM/DL (32-36); Mean Corpuscular Volume 94.4 FL (87-102); Mean Platelet Volume 10.7 FL (9.6-12.0); Monocytes % 11.5 % (1.7-12.7); Neutrophils % 39.8 % (38.7-73.9); Platelet Count 144 T/CUMM (130-400); Red Blood Count 3.74 MC/CUMM (3.8-5.5); Red Cell Distribution Width 13.6 % (9.3-17.3)
[2021-05-27 06:01] LABS: Risk Ratio 2.21; VLDL Cholesterol 9.2 MG/DL
[2021-05-27 06:12] LABS: Eosinophils 2 % (0-10); Hypochromia Slight; Lymphocytes 41 % (20-55); Microcytosis Slight; Platelet Estimate Adequate; Segmented Neutrophils 44 % (50-85); Total Cells Counted 100
[2021-05-27 06:15] LABS: Calcium 8.4 MG/DL (8.5-10.1); Osmolality,Calculated 276.7 MOS/KG (273-304); Potassium 3.9 MMOL/L (3.5-5.1)
[2021-05-27] MEDS: PANTOPRAZOLE 40 MG TABLET PO SCH (10:06)
[2021-05-27] MEDS: SOTALOL 80 MG TABLET PO SCH ×2 (10:06→21:20)
[2021-05-27] MEDS: APIXABAN 5 MG TABLET PO SCH ×2 (13:47→21:21)
[2021-05-27] MEDS: LOSARTAN 25 MG TABLET PO SCH (21:20)
[2021-05-28 05:34] LABS: Basophils % 0.4 % (0.0-0.8); Eosinophils % 0.7 % (0.00-10.9); Hematocrit 34.5 VOL% (42.0-52.0); Immature Granulocytes % 0.2 %; Immature Granulocytes Absolute 0.01 #; Lymphocytes # 2.2 10*3/uL (1.4-4.0); Lymphocytes % 40.4 % (21.2-54.2); Mean Corpuscular HGB Conc 31.9 GM/DL (32-36); Mean Corpuscular Volume 92.7 FL (87-102); Mean Platelet Volume 10.1 FL (9.6-12.0); Monocytes % 11.4 % (1.7-12.7); Neutrophils % 46.9 % (38.7-73.9); Platelet Count 141 T/CUMM (130-400); Red Blood Count 3.72 MC/CUMM (3.8-5.5); Red Cell Distribution Width 13.3 % (9.3-17.3); White Blood Count 5.4 T/CUMM (4-12)
[2021-05-28 06:03] LABS: Eosinophils 3 % (0-10); Hypochromia Slight; Lymphocytes 42 % (20-55); Microcytosis Slight; Platelet Estimate Adequate; Segmented Neutrophils 48 % (50-85); Total Cells Counted 100
[2021-05-28 06:56] LABS: Calcium 8.7 MG/DL (8.5-10.1); Osmolality,Calculated 273.8 MOS/KG (273-304); Potassium 3.8 MMOL/L (3.5-5.1)
[2021-05-28] MEDS: SOTALOL 80 MG TABLET PO SCH (09:05)
[2021-05-28] MEDS: APIXABAN 5 MG TABLET PO SCH (09:05)
[2021-05-28] MEDS: PANTOPRAZOLE 40 MG TABLET PO SCH (09:05)
[2021-05-28 11:46] VITALS: BP 119/67
== END 2021-05-28 14:07 | disposition home or self-care (01) ==
LOC: N.TELES
PROVIDERS: ADMIT Internal Medicine Interventional Cardiology; ATTEND Internal Medicine Interventional Cardiology